=== PATIENT | male | born 1970 | race Caucasian/White ===

== ENCOUNTER 2022-08-04 12:03 | Emergency (ER) | payer BC ==
[2022-08-04 12:28] LABS: #Monocytes 0.4 thou/uL (0.11-0.59); #Neutrophils 12.3 thou/uL (1.40-6.50); %Basophils 0.3 % (0.0-1.0); %Eosinophils 0.1 % (0.0-10.0); %Lymphocytes 6.3 % (21.0-51.0); %Monocytes 2.5 % (0.0-10.0); %Neutrophils 89.1 % (42.0-75.0); Hemoglobin 14.7 g/dL (14.0-18.0); Mean Corpuscular HGB CONC 32.8 g/dL (32.0-36.0); Mean Corpuscular Hemoglobin 28.7 pg (27.0-31.0); Mean Corpuscular Volume 87.5 fl (78.0-98.0); Mean Platelet Volume 10.2 fL (7.4-10.4); Platelet Count 276 10x3/uL (130-400); RBC Distribution Width 13.5 % (11.5-14.5); Red Blood Cell (RBC) Count 5.12 mill/uL (4.70-6.10); White Blood Cell (WBC) Count 13.8 10x3/uL (4.8-10.8)
[2022-08-04 12:52] LABS: ALT (SGPT) 39 U/L (8-55); AST (SGOT) 24 U/L (5-34); Albumin 4.5 g/dL (3.5-5.0); Alkaline Phosphatase 55 U/L (40-110); Anion Gap 15 mmol/L (10-20); BUN (Urea Nitrogen) 13 mg/dL (8.4-25.7); Bilirubin, Total 0.7 mg/dL (0.2-1.2); Calc. Creatinine Clearance 0 mL/min (70-130); Calcium 9.6 mg/dL (7.8-10.44); Carbon Dioxide 24 mmol/L (22-29); Chloride 105 mmol/L (98-107); Estimated GFR 64; Globulin 2.6 g/dL (2.4-3.5); Glucose 127 mg/dL (70-105); Lipase 397 U/L (8-78); Potassium 3.6 mmol/L (3.5-5.1); Protein, Total 7.1 g/dL (6.0-8.3); Sodium 140 mmol/L (136-145)
[2022-08-04 13:48] LABS: Bacteria/HPF None Seen HPF (None Seen); Bilirubin Negative (Negative); Blood, Urine Trace (Negative); Clarity Clear (Clear); Glucose, Urine (Dipstick) Normal (Negative); Ketone, Urine Negative (Negative); Leukocyte Negative Leu/uL (Negative); Nitrite Negative (Negative); Protein, Urine (Dipstick) Negative (Neg-Trace); RBC/HPF 0-3 HPF (0-3); Specific Gravity, Urine 1.014 (1.002-1.036); Squamous Epithelial None Seen HPF (0-3); Urobilinogen Normal mg/dL (Less than 2); WBC/HPF 0-3 HPF (0-3); pH, Urine 6.5 (5.0-9.0)
== END 2022-08-04 15:26 | disposition home or self-care (01) ==
LOC: ERS 12:03
DX: N20.1 Calculus of ureter (principal); N28.89 Other specified disorders of kidney and ureter; D72.829 Elevated white blood cell count, unspecified; E78.00 Pure hypercholesterolemia, unspecified
CPT/HCPCS: 36415; 74176; 80053; 81003; 81015; 83690; 85025; 96360; 96361

== ENCOUNTER 2023-08-10 07:51 | Outpatient (CLI) | payer BC ==
[2023-08-10 09:03] LABS: #Basophils 0.04 10x3/uL (0.0-0.2); #Eosinphils 0.07 10x3/uL (0.0-0.5); #Monocytes 0.69 10x3/uL (0.0-1.1); #Neutrophils 5.01 10x3/uL (1.5-8.4); %Basophils 0.5 % (0.0-2.0); %Eosinophils 0.8 % (0.0-6.0); %Lymphocytes 30.4 % (18.0-47.0); %Monocytes 8.1 % (0.0-10.0); %Neutrophils 58.6 % (40.0-75.0); Hematocrit 41.9 % (38.8-50.0); Hemoglobin 14.1 g/dL (13.5-17.5); Mean Corpuscular HGB CONC 33.7 g/dL (32.0-36.0); Mean Corpuscular Hemoglobin 29.2 pg (27.0-33.0); Mean Corpuscular Volume 86.7 fl (81.2-95.1); Platelet Count 250 10x3/uL (150-450); RBC Distribution Width 13.5 % (11.5-14.5); Red Blood Cell (RBC) Count 4.83 10x6/uL (4.32-5.72); White Blood Cell (WBC) Count 8.6 10x3/uL (3.5-10.5)
== END 2023-08-10 07:52 | disposition home or self-care (01) ==
LOC: LABBT 07:51
PROVIDERS: ATTEND Orthopaedic Surgery Hand Surgery
DX: Z01.812 Encounter for preprocedural laboratory examination (principal); M1A.9XX1 Chronic gout, unspecified, with tophus (tophi)
CPT/HCPCS: 85025

== ENCOUNTER 2023-08-13 05:37 | Day surgery (SDC) | payer BC ==
[2023-08-10 08:10] VITALS: BMI 27.2
[2023-08-13] MEDS ORDERED: Bacitracin Zinc Ointment 30 gm TUBE ONE (06:26)
[2023-08-13] MEDS ORDERED: Bupivacaine PF 0.5% 30 ML VIAL ONE (06:26)
[2023-08-13] MEDS ORDERED: fentaNYL PF 100 MCG/2 ML SYRINGE ONE ×2 (06:39→07:24)
[2023-08-13] MEDS ORDERED: PROPOFOL 20 ML ONE (06:39)
[2023-08-13] MEDS ORDERED: Midazolam HCl 2 mg/2 ml Vial ONE (06:39)
[2023-08-13] MEDS ORDERED: Dexamethasone 4 mg/ml Vial ONE (06:42)
[2023-08-13] MEDS ORDERED: Ondansetron PF 4 MG/2 ML Vial ONE (06:42)
[2023-08-13] MEDS ORDERED: Lidocaine 1% PF 5 ML VIAL ONE (06:42)
[2023-08-13] MEDS ORDERED: Sodium Chloride 0.9% 100 ML ONE (06:49)
[2023-08-13] MEDS ORDERED: CEFAZOLIN 2 GM VIAL ONE (06:49)
[2023-08-13] MEDS ORDERED: fentaNYL 50 mcg/mL 1 mL Vial ONE ×2 (09:41→09:53)
== END 2023-08-13 11:40 | disposition home or self-care (01) ==
LOC: SDC 05:37
PROVIDERS: ATTEND Orthopaedic Surgery Hand Surgery
PROC: 0JB Subcutaneous Tissue and Fascia, Excision (ICD-10-PCS; principal; 2023-08-13)
PROC: 0MB30ZZ Excision of Right Elbow Bursa and Ligament, Open Approach (ICD-10-PCS; principal; 2023-08-13)
DX: M1A.9XX1 Chronic gout, unspecified, with tophus (tophi) (principal); M70.21 Olecranon bursitis, right elbow; M70.22 Olecranon bursitis, left elbow
CPT/HCPCS: 88304; A6223; J0665; J1100; J2250; J2405; J2704; J3010; J3490

== ENCOUNTER 2023-08-16 21:13 | Inpatient (IN) | payer BC ==
[2023-08-16 21:38] LABS: #Basophils 0.03 10x3/uL (0.0-0.2); %Basophils 0.2 % (0.0-1.0); %Eosinophils 0.2 % (0.0-10.0); %Lymphocytes 14.6 % (21.0-51.0); %Neutrophils 76.3 % (42.0-75.0); Hematocrit 46.1 % (42.0-52.0); Hemoglobin 15.6 g/dL (14.0-18.0); Mean Corpuscular HGB CONC 33.8 g/dL (32.0-36.0); Mean Corpuscular Hemoglobin 28.9 pg (27.0-31.0); Mean Corpuscular Volume 85.4 fL (78.0-98.0); Mean Platelet Volume 9.9 fL (7.4-10.4); Platelet Count 239 10x3/uL (130-400); RBC Distribution Width 13.8 % (11.5-14.5)
[2023-08-16 21:51] LABS: ALT (SGPT) 24 U/L (8-55); AST (SGOT) 13 U/L (5-34); Albumin 3.8 g/dL (3.5-5.0); Alkaline Phosphatase 56 U/L (40-110); Anion Gap 17 mmol/L (10-20); BUN (Urea Nitrogen) 11 mg/dL (8.4-25.7); Bilirubin, Total 2.9 mg/dL (0.2-1.2); Calc. Creatinine Clearance 0 mL/min (70-130); Carbon Dioxide 25 mmol/L (22-29); Chloride 102 mmol/L (98-107); Estimated GFR 79; Globulin 3.7 g/dL (2.4-3.5); Glucose 103 mg/dL (70-105); Lipase 21 U/L (8-78); Potassium 3.7 mmol/L (3.5-5.1); Protein, Total 7.5 g/dL (6.0-8.3); Sodium 140 mmol/L (136-145)
[2023-08-16] MEDS ORDERED: Acetaminophen 500 MG TAB ONE (22:51)
[2023-08-16] MEDS ORDERED: Cefepime 2 GM VIAL ONE (22:51)
[2023-08-16] MEDS ORDERED: Sodium Chloride 0.9% 100 ML ONE (22:52)
[2023-08-16] MEDS ORDERED: Morphine 4 MG/ML VIAL ONE (23:39)
[2023-08-17] MEDS ORDERED: Morphine 4 MG/ML VIAL SLOW IVP PRN (00:18)
[2023-08-17 00:41] LABS: Influenza A by NAA Not Detected (NotDetected); Influenza B by NAA Not Detected (NotDetected); SARS-CoV-2 NAA Rapid Test Not Detected (NotDetected)
[2023-08-17 02:13] VITALS: BMI 27.3
[2023-08-17] MEDS: Vancomycin (BATCH) 2 GM in Premix 1 BAG IVPB SCH (02:16)
[2023-08-17] MEDS: Lactated Ringer's 1,000 ML IV SCH (02:22)
[2023-08-17] MEDS: Acetaminophen 325 MG TAB PO PRN (02:30)
[2023-08-17] MEDS: HYDROcodone/Acetaminophen 10/325 mg Tablet PO PRN (03:54)
[2023-08-17 04:32] LABS: #Basophils 0.03 10x3/uL (0.0-0.2); #Eosinphils Less than 0.03 10x3/uL (0.0-0.7); %Basophils 0.3 % (0.0-1.0); %Eosinophils 0.2 % (0.0-10.0); %Lymphocytes 13.9 % (21.0-51.0); %Monocytes 9.4 % (0.0-10.0); %Neutrophils 75.3 % (42.0-75.0); Hematocrit 38.1 % (42.0-52.0); Hemoglobin 12.7 g/dL (14.0-18.0); Mean Corpuscular HGB CONC 33.3 g/dL (32.0-36.0); Mean Corpuscular Hemoglobin 28.7 pg (27.0-31.0); Mean Platelet Volume 10.5 fL (7.4-10.4); Platelet Count 175 10x3/uL (130-400); RBC Distribution Width 13.9 % (11.5-14.5); Red Blood Cell (RBC) Count 4.43 mill/uL (4.70-6.10)
[2023-08-17 05:01] LABS: ALT (SGPT) 16 U/L (8-55); AST (SGOT) 10 U/L (5-34); Albumin 2.8 g/dL (3.5-5.0); Alkaline Phosphatase 40 U/L (40-110); Anion Gap 13 mmol/L (10-20); BUN (Urea Nitrogen) 10 mg/dL (8.4-25.7); Bilirubin, Total 2.6 mg/dL (0.2-1.2); Calc. Creatinine Clearance 129 mL/min (70-130); Carbon Dioxide 21 mmol/L (22-29); Chloride 108 mmol/L (98-107); Estimated GFR 106; Globulin 2.7 g/dL (2.4-3.5); Glucose 98 mg/dL (70-105); Potassium 3.7 mmol/L (3.5-5.1); Protein, Total 5.5 g/dL (6.0-8.3); Sodium 138 mmol/L (136-145)
[2023-08-17] MEDS: Cefepime 2 GM in Sodium Chloride 0.9% 100 ML IVPB SCH (10:05)
[2023-08-17] MEDS: Ondansetron PF 4 MG/2 ML Vial IVP PRN (12:47)
[2023-08-17] MEDS ORDERED: Vancomycin 1 GM in Premix 1 BAG IVPB SCH (14:00)
[2023-08-17] MEDS: Vancomycin 1 GM in Premix 1 BAG IVPB SCH (15:01)
[2023-08-18 05:27] LABS: #Basophils Less than 0.03 10x3/uL (0.0-0.2); %Basophils 0.2 % (0.0-1.0); %Eosinophils 0.3 % (0.0-10.0); %Lymphocytes 7.1 % (21.0-51.0); %Monocytes 9.6 % (0.0-10.0); %Neutrophils 82.3 % (42.0-75.0); Hematocrit 40.4 % (42.0-52.0); Hemoglobin 13.6 g/dL (14.0-18.0); Mean Corpuscular HGB CONC 33.7 g/dL (32.0-36.0); Mean Corpuscular Hemoglobin 29.2 pg (27.0-31.0); Mean Corpuscular Volume 86.7 fL (78.0-98.0); Mean Platelet Volume 9.9 fL (7.4-10.4); Platelet Count 207 10x3/uL (130-400); RBC Distribution Width 13.5 % (11.5-14.5); Red Blood Cell (RBC) Count 4.66 mill/uL (4.70-6.10)
[2023-08-18 05:54] LABS: Vancomycin, Random 17.4 ug/mL (See Comment)
[2023-08-18 05:56] LABS: Anion Gap 19 mmol/L (10-20); BUN (Urea Nitrogen) 8 mg/dL (8.4-25.7); Calc. Creatinine Clearance 130 mL/min (70-130); Calcium 9.2 mg/dL (7.8-10.44); Carbon Dioxide 20 mmol/L (22-29); Chloride 101 mmol/L (98-107); Estimated GFR 107; Glucose 87 mg/dL (70-105); Potassium 3.7 mmol/L (3.5-5.1); Sodium 136 mmol/L (136-145)
[2023-08-18] MEDS ORDERED: Ibuprofen 200 MG TAB PO PRN (08:33)
[2023-08-18] MEDS ORDERED: Ibuprofen 800 MG TAB PO PRN (08:49)
[2023-08-18] MEDS ORDERED: Allopurinol 100 MG TAB PO SCH (09:00)
[2023-08-18] MEDS ORDERED: Non-Formulary Item 1 EACH (Prednisone [Prednisone] 10 MG Tablet) PO SCH (09:00)
[2023-08-18] MEDS: Allopurinol 100 MG TAB PO SCH (09:01)
[2023-08-18 09:02] VITALS: BMI 27.3
[2023-08-18] MEDS: predniSONE 5 MG TAB PO SCH (09:02)
[2023-08-18] MEDS: Vancomycin HCl 750 MG in Sodium Chloride 0.9% 250 ML 250 ML IVPB SCH (14:22)
[2023-08-18] MEDS: predniSONE 20 MG TAB PO SCH (22:39)
[2023-08-19 07:09] LABS: #Basophils Less than 0.03 10x3/uL (0.0-0.2); #Eosinphils Less than 0.03 10x3/uL (0.0-0.7); %Basophils 0.1 % (0.0-1.0); %Eosinophils 0.1 % (0.0-10.0); %Lymphocytes 3.4 % (21.0-51.0); %Monocytes 2.8 % (0.0-10.0); %Neutrophils 93.1 % (42.0-75.0); Hematocrit 41.2 % (42.0-52.0); Hemoglobin 13.7 g/dL (14.0-18.0); Mean Corpuscular HGB CONC 33.3 g/dL (32.0-36.0); Mean Corpuscular Hemoglobin 28.8 pg (27.0-31.0); Mean Corpuscular Volume 86.6 fL (78.0-98.0); Mean Platelet Volume 10.3 fL (7.4-10.4); Platelet Count 239 10x3/uL (130-400); RBC Distribution Width 13.2 % (11.5-14.5); Red Blood Cell (RBC) Count 4.76 mill/uL (4.70-6.10)
[2023-08-19 07:44] LABS: Anion Gap 14 mmol/L (10-20); BUN (Urea Nitrogen) 11 mg/dL (8.4-25.7); Calc. Creatinine Clearance 135 mL/min (70-130); Calcium 9.4 mg/dL (7.8-10.44); Carbon Dioxide 23 mmol/L (22-29); Chloride 104 mmol/L (98-107); Estimated GFR 108; Glucose 160 mg/dL (70-105); Potassium 4.3 mmol/L (3.5-5.1); Sodium 137 mmol/L (136-145)
[2023-08-19] MEDS: predniSONE 20 MG TAB PO SCH (20:26)
[2023-08-19] MEDS: Saccharomyces boulardii 250 MG CAP PO SCH (20:26)
[2023-08-19] MEDS: Famotidine 20 MG TAB PO SCH (20:26)
[2023-08-20 05:51] LABS: #Basophils Less than 0.03 10x3/uL (0.0-0.2); #Eosinphils Less than 0.03 10x3/uL (0.0-0.7); %Basophils 0.2 % (0.0-1.0); %Eosinophils 0.2 % (0.0-10.0); %Lymphocytes 3.7 % (21.0-51.0); %Monocytes 2.6 % (0.0-10.0); %Neutrophils 92.8 % (42.0-75.0); Hematocrit 39.7 % (42.0-52.0); Hemoglobin 13.2 g/dL (14.0-18.0); Mean Corpuscular HGB CONC 33.2 g/dL (32.0-36.0); Mean Corpuscular Hemoglobin 28.4 pg (27.0-31.0); Mean Corpuscular Volume 85.6 fL (78.0-98.0); Platelet Count 287 10x3/uL (130-400); RBC Distribution Width 13.4 % (11.5-14.5); Red Blood Cell (RBC) Count 4.64 mill/uL (4.70-6.10)
[2023-08-20 06:20] LABS: Anion Gap 16 mmol/L (10-20); BUN (Urea Nitrogen) 17 mg/dL (8.4-25.7); Calc. Creatinine Clearance 134 mL/min (70-130); Calcium 8.9 mg/dL (7.8-10.44); Carbon Dioxide 19 mmol/L (22-29); Chloride 109 mmol/L (98-107); Estimated GFR 107; Glucose 157 mg/dL (70-105); Potassium 4.6 mmol/L (3.5-5.1); Sodium 139 mmol/L (136-145)
[2023-08-20 06:23] LABS: Vancomycin, Random 12.6 ug/mL (See Comment)
[2023-08-20 06:26] LABS: ALT (SGPT) 25 U/L (8-55); AST (SGOT) 21 U/L (5-34); Albumin 2.9 g/dL (3.5-5.0); Alkaline Phosphatase 47 U/L (40-110); Bilirubin, Direct 0.3 mg/dL (0.1-0.3); Bilirubin, Total 0.9 mg/dL (0.2-1.2); Protein, Total 6.8 g/dL (6.0-8.3)
[2023-08-20 10:55] VITALS: BP 127/81; TEMP 98.2
== END 2023-08-20 11:09 | disposition home or self-care (01) | DRG 872 ==
LOC: ERS 21:13 → 2NO 23:58 → T4-B 08-17 17:55
PROVIDERS: ADMIT Student in an Organized Health Care Education/Training Program; ATTEND Internal Medicine
DX: A41.9 Sepsis, unspecified organism (principal); L03.311 Cellulitis of abdominal wall; M1A.9XX0 Chronic gout, unspecified, without tophus (tophi); E78.5 Hyperlipidemia, unspecified; N20.0 Calculus of kidney; D64.9 Anemia, unspecified; R79.89 Other specified abnormal findings of blood chemistry; E80.6 Other disorders of bilirubin metabolism; Z79.1 Long term (current) use of non-steroidal anti-inflammatories (NSAID); Z79.52 Long term (current) use of systemic steroids; Z79.899 Other long term (current) drug therapy
CPT/HCPCS: 36415; 71045; 74177; 80048; 80053; 80076; 80202; 83605; 83690; 83735; 85025; 87040; 87070; 87205; 93005; 96365; 96375; 97139; J0692; J2270; J2405; J3370; J3370-JW; J3490; J7050; J7120; J7512

== ENCOUNTER 2024-01-06 09:03 | Outpatient (CLI) | payer BC ==
[2024-01-06 09:43] LABS: #Basophils 0.03 10x3/uL (0.0-0.2); %Basophils 0.4 % (0.0-1.0); %Eosinophils 1.1 % (0.0-10.0); %Lymphocytes 32.6 % (21.0-51.0); %Monocytes 9.5 % (0.0-10.0); %Neutrophils 55.7 % (42.0-75.0); Hematocrit 44.7 % (42.0-52.0); Hemoglobin 14.7 g/dL (14.0-18.0); Mean Corpuscular HGB CONC 32.9 g/dL (32.0-36.0); Mean Corpuscular Hemoglobin 29.7 pg (27.0-31.0); Mean Corpuscular Volume 90.3 fL (78.0-98.0); Mean Platelet Volume 9.7 fL (7.4-10.4); Platelet Count 223 10x3/uL (130-400); RBC Distribution Width 13.2 % (11.5-14.5); Red Blood Cell (RBC) Count 4.95 mill/uL (4.70-6.10)
[2024-01-06 10:05] LABS: Anion Gap 10 mmol/L (10-20); BUN (Urea Nitrogen) 16 mg/dL (8.4-25.7); Calc. Creatinine Clearance 0 mL/min (70-130); Carbon Dioxide 27 mmol/L (22-29); Chloride 106 mmol/L (98-107); Estimated GFR 101; Glucose 88 mg/dL (70-105); Potassium 3.3 mmol/L (3.5-5.1); Sodium 140 mmol/L (136-145)
== END 2024-01-06 09:04 | disposition home or self-care (01) ==
LOC: LABBT 09:03
PROVIDERS: ATTEND Orthopaedic Surgery Hand Surgery
DX: Z01.818 Encounter for other preprocedural examination (principal); M1A.9XX1 Chronic gout, unspecified, with tophus (tophi)
CPT/HCPCS: 80048; 85025; 93005; 93010

== ENCOUNTER 2024-01-13 06:55 | Day surgery (SDC) | payer BC ==
[2024-01-06 09:14] VITALS: BMI 27.7
[2024-01-13] MEDS ORDERED: Midazolam HCl 2 mg/2 ml Vial ONE (09:13)
[2024-01-13] MEDS ORDERED: EPINEPHrine 1 MG/ML VIAL ONE (09:24)
[2024-01-13] MEDS ORDERED: Bupivacaine PF 0.5% 30 ML VIAL ONE (09:24)
[2024-01-13] MEDS ORDERED: CEFAZOLIN 2 GM VIAL ONE (09:45)
[2024-01-13] MEDS ORDERED: Lidocaine 2% PF 5 ML VIAL ONE (09:48)
[2024-01-13] MEDS ORDERED: PROPOFOL 20 ML ONE ×2 (09:48→10:02)
[2024-01-13] MEDS ORDERED: HYDROmorphone 2 MG/ML VIAL ONE (10:03)
[2024-01-13] MEDS ORDERED: Ondansetron PF 4 MG/2 ML Vial ONE (10:26)
[2024-01-13] MEDS ORDERED: Dexamethasone 20 MG/5 ML VIAL ONE (10:26)
[2024-01-13] MEDS ORDERED: Ketorolac Tromethamine 30 MG (1 mL) VIAL ONE (10:26)
== END 2024-01-13 13:15 | disposition home or self-care (01) ==
LOC: SDC 06:55
PROVIDERS: ATTEND Orthopaedic Surgery Hand Surgery
PROC: 0JBG0ZZ Excision of Right Lower Arm Subcutaneous Tissue and Fascia, Open Approach (ICD-10-PCS; principal; 2024-01-13)
DX: M1A.9XX1 Chronic gout, unspecified, with tophus (tophi) (principal); E78.5 Hyperlipidemia, unspecified
CPT/HCPCS: A6223; J0171; J0665; J1100; J1885; J2250; J2405; J2704

== ENCOUNTER 2024-01-17 04:42 | Inpatient (IN) | payer BC ==
[2024-01-17] MEDS ORDERED: Acetaminophen 500 MG TAB ONE (05:15)
[2024-01-17] MEDS ORDERED: Cefepime 2 GM VIAL ONE (05:30)
[2024-01-17] MEDS ORDERED: Sodium Chloride 0.9% 100 ML ONE (05:30)
[2024-01-17 05:52] LABS: #Basophils 0.03 10x3/uL (0.0-0.2); %Basophils 0.2 % (0.0-1.0); %Eosinophils 0.5 % (0.0-10.0); %Lymphocytes 11.5 % (21.0-51.0); %Neutrophils 77.6 % (42.0-75.0); Hematocrit 43.7 % (42.0-52.0); Hemoglobin 14.3 g/dL (14.0-18.0); Mean Corpuscular HGB CONC 32.7 g/dL (32.0-36.0); Mean Corpuscular Hemoglobin 29.6 pg (27.0-31.0); Mean Corpuscular Volume 90.5 fL (78.0-98.0); Mean Platelet Volume 10.3 fL (7.4-10.4); Platelet Count 202 10x3/uL (130-400); RBC Distribution Width 13.2 % (11.5-14.5); Red Blood Cell (RBC) Count 4.83 mill/uL (4.70-6.10)
[2024-01-17 06:10] LABS: ALT (SGPT) 29 U/L (8-55); AST (SGOT) 19 U/L (5-34); Albumin 3.7 g/dL (3.5-5.0); Alkaline Phosphatase 51 U/L (40-110); Anion Gap 14 mmol/L (10-20); BUN (Urea Nitrogen) 14 mg/dL (8.4-25.7); Bilirubin, Total 2.3 mg/dL (0.2-1.2); Calc. Creatinine Clearance 0 mL/min (70-130); Carbon Dioxide 24 mmol/L (22-29); Chloride 100 mmol/L (98-107); Estimated GFR 95; Globulin 3.1 g/dL (2.4-3.5); Glucose 116 mg/dL (70-105); Protein, Total 6.8 g/dL (6.0-8.3); Sodium 134 mmol/L (136-145)
[2024-01-17] MEDS ORDERED: Vancomycin 1 GM/200 ML (FROZEN) BAG ONE (06:11)
[2024-01-17] MEDS ORDERED: traMADol HCl 50 MG TAB PO PRN (07:21)
[2024-01-17] MEDS ORDERED: Acetaminophen 650 MG Suppository PR PRN (07:21)
[2024-01-17] MEDS ORDERED: VANCOMYCIN IVPB PRN (07:27)
[2024-01-17] MEDS ORDERED: Magnevist 469MG/ML 20 ML VIAL ONE (10:02)
[2024-01-17 10:08] VITALS: BMI 27.7
[2024-01-17] MEDS: Allopurinol 300 MG TAB PO SCH (10:54)
[2024-01-17] MEDS: Acetaminophen 325 MG TAB PO PRN (10:55)
[2024-01-17] MEDS: Enoxaparin 40 MG (0.4 mL) SYRINGE SC SCH (10:55)
[2024-01-17] MEDS: Vancomycin 1 GM in Premix 1 BAG IVPB SCH (10:56)
[2024-01-17] MEDS: Vancomycin 1 GM in Sodium Chloride 0.9% 250 ML 250 ML IVPB SCH (11:05)
[2024-01-17] MEDS: Cefepime 2 GM in Sodium Chloride 0.9% 100 ML IVPB SCH (16:54)
[2024-01-17] MEDS: traMADol HCl 50 MG TAB PO PRN (16:54)
[2024-01-17] MEDS: Ketorolac Tromethamine 30 MG (1 mL) VIAL IVP SCH (18:43)
[2024-01-17] MEDS: Vancomycin (BATCH) 1.25 GM in Premix 1 BAG IVPB SCH (20:12)
[2024-01-18 05:29] LABS: #Basophils Less than 0.03 10x3/uL (0.0-0.2); %Basophils 0.1 % (0.0-1.0); %Eosinophils 0.3 % (0.0-10.0); %Monocytes 7.7 % (0.0-10.0); %Neutrophils 83.1 % (42.0-75.0); Hematocrit 41.7 % (42.0-52.0); Hemoglobin 13.5 g/dL (14.0-18.0); Mean Corpuscular HGB CONC 32.4 g/dL (32.0-36.0); Mean Corpuscular Hemoglobin 29.4 pg (27.0-31.0); Mean Corpuscular Volume 90.8 fL (78.0-98.0); Mean Platelet Volume 10.2 fL (7.4-10.4); Platelet Count 187 10x3/uL (130-400); RBC Distribution Width 13.1 % (11.5-14.5); Red Blood Cell (RBC) Count 4.59 mill/uL (4.70-6.10)
[2024-01-18 05:40] LABS: Anion Gap 14 mmol/L (10-20); BUN (Urea Nitrogen) 11 mg/dL (8.4-25.7); Calc. Creatinine Clearance 129 mL/min (70-130); Calcium 8.8 mg/dL (7.8-10.44); Carbon Dioxide 22 mmol/L (22-29); Chloride 103 mmol/L (98-107); Estimated GFR 106; Glucose 112 mg/dL (70-105); Potassium 4.2 mmol/L (3.5-5.1); Sodium 135 mmol/L (136-145)
[2024-01-18 05:41] LABS: Vancomycin, Random 12.8 ug/mL (See Comment)
[2024-01-18] MEDS: Icosapent Ethyl 1 GM CAPSULE FS SCH (08:46)
[2024-01-18] MEDS: Enoxaparin 40 MG (0.4 mL) SYRINGE SC SCH (08:46)
[2024-01-18] MEDS: FLU (Fluarix Triv) TS24-25(6MOS UP)/PF 45 MCG/0.5 ML Syringe IM ONE (08:47)
[2024-01-18] MEDS: Colchicine 0.6 MG TAB PO SCH (20:13)
[2024-01-19] MEDS ORDERED: Ondansetron ODT 4 MG TAB PO PRN (03:57)
[2024-01-19] MEDS ORDERED: Ondansetron PF 4 MG/2 ML Vial IVP PRN (03:57)
[2024-01-19] MEDS ORDERED: predniSONE 20 MG TAB PO SCH (04:00)
[2024-01-19] MEDS: Ketorolac Tromethamine 30 MG (1 mL) VIAL IVP SCH (05:14)
[2024-01-19] MEDS: predniSONE 20 MG TAB PO SCH (06:44)
[2024-01-19 07:48] VITALS: BP 129/74; TEMP 100.5
[2024-01-19] MEDS: Pantoprazole DR 40 MG TAB PO SCH (09:16)
== END 2024-01-19 11:20 | disposition home or self-care (01) | DRG 554 ==
LOC: SUATTDRO 04:42 → ERS 04:42 → SURG B 09:58
PROVIDERS: ADMIT Family Medicine; ATTEND Internal Medicine
DX: M10.9 Gout, unspecified (principal); E78.5 Hyperlipidemia, unspecified; Z79.899 Other long term (current) drug therapy; Z98.890 Other specified postprocedural states
CPT/HCPCS: 36415; 80048; 80053; 80202; 83605; 85025; 87040; 87428; 93005; 96365; 96367; J0692; J1650; J1885; J3370; J3370-JW; J7512